=== PATIENT | female | born 1995 | race Caucasian/White ===

== ENCOUNTER 2016-10-17 06:53 | Inpatient (IN) | payer OTHER ==
[2016-10-17] MEDS ORDERED: NITRATEST PAPER MC ONE (08:00)
[2016-10-17] MEDS ORDERED: LACTATED RINGERS 1,000 ML IV SCH ×2 (08:00→09:00)
[2016-10-17] MEDS ORDERED: MINERAL OIL PO PRN ×2 (08:00→09:00)
[2016-10-17] MEDS ORDERED: PITOCin/NS 20 UNIT/1000ML DRIP 1,000 ML IV SCH ×2 (08:00→09:00)
[2016-10-17] MEDS ORDERED: PITOCin/NS 30 UNIT/500ML 500 ML IV SCH ×2 (08:00→09:00)
[2016-10-17] MEDS ORDERED: ePHEDrine SULFATE IV PRN ×2 (08:30→09:00)
[2016-10-17] MEDS ORDERED: BRETHINE IVP PRN ×2 (08:30→10:00)
[2016-10-17] MEDS ORDERED: BRETHINE SUB-Q PRN ×2 (08:30→10:00)
[2016-10-17] MEDS ORDERED: POLYCILLIN/NS 2 GM/100 ML 100 ML IV ONE (08:30)
[2016-10-17 08:35] LABS: Hematocrit 33.9 % (30.3-42.9); Hemoglobin 10.9 gm/dl (10.1-14.3); Mean Corpuscular HGB Conc 32 % (30-34); Mean Corpuscular Volume 80 fl (79-97); Platelet Count 251 K/mm3 (140-440); Red Blood Count 4.26 M/mm3 (3.65-5.03); Red Cell Distribution Width 15.5 % (13.2-15.2); White Blood Count 9.1 K/mm3 (4.5-11.0)
[2016-10-17 08:39] LABS: Mean Corpuscular Hemoglobin 26 pg (28-32)
[2016-10-17] MEDS ORDERED: STADOL IV PRN (09:00)
[2016-10-17] MEDS ORDERED: ZOFRAN IV PRN ×2 (09:00→12:53)
[2016-10-17] MEDS ORDERED: SUBLIMAZE IV PRN (09:00)
[2016-10-17] MEDS ORDERED: NARCAN 0.4 MG/1 ML IV PRN (09:00)
[2016-10-17] MEDS ORDERED: XYLOCAINE 2% INFILTRATI ONE (10:00)
--- NOTE | 2016-10-17 11:07 | History and Physical Report ---
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) Family/Genetic History: diabetes Social history: no significant social history - Obstetrical History Expected Date of Delivery: 10/18/16 Actual Gestation: 39 Week(s) 6 Day(s) : 2 Number of Living Children: 1 Medications and Allergies Allergies Allergy/AdvReac Type Severity Reaction Status Date / Time No Known Allergies Allergy Unverified 10/17/16 07:56 Active Meds: Active Medications Butorphanol Tartrate (Stadol) 1 mg IV Q2H PRN PRN Reason: Pain, Moderate (4-6) Ephedrine Sulfate (Ephedrine Sulfate) 10 mg IV Q2M PRN PRN Reason: Hypotension Stop: 10/17/16 13:00 Fentanyl (Sublimaze) 100 mcg IV Q2H PRN PRN Reason: Labor Pain Ampicillin Sodium (Polycillin/Ns 1 Gm/50 Ml) 50 mls @ 100 mls/hr IV Q4H YOKO PRN Reason: Protocol Lactated Ringer's (Lactated Ringers) 1,000 mls @ 125 mls/hr IV DIRECT YOKO Last Admin: 10/17/16 08:15 Dose: 125 mls/hr Oxytocin/Sodium Chloride (Pitocin/Ns 20 Unit/1000ml Drip) 1,000 mls @ 125 mls/ hr IV DIRECT YOKO Oxytocin/Sodium Chloride (Pitocin/Ns 30 Unit/500ml) 500 mls @ 2 mls/hr IV TITR YOKO PRN Reason: Protocol Last Titration: 10/17/16 10:00 Dose: 4 ml/hr Influenza Virus Vaccine Quadrival (Fluarix Quad [id number](36 Mos+)) 60 mcg IM .ONCE ONE Stop: 10/18/16 12:01 Mineral Oil (Mineral Oil) 30 ml PO QHS PRN PRN Reason: Constipation Naloxone HCl (Narcan 0.4 Mg/1 Ml) 0.1 mg IV Q2MIN PRN PRN Reason: Res Rate </= 8 or 02 SAT < 92% Ondansetron HCl (Zofran) 4 mg IV Q8H PRN PRN Reason: Nausea And Vomiting Review of Systems All systems: negative Gastrointestinal: abdominal pain Genitourinary: leakage of fluid - Vital Signs Vital signs: Vital Signs Pulse Pulse Ox 83 98 10/17/16 08:18 10/17/16 08:18 Temp Pulse Resp BP Pulse Ox 97.9 F 85 18 99 10/17/16 08:19 10/17/16 09:18 10/17/16 08:19 10/17/16 09:18 - Physical Exam Breasts: Positive: deferred Cardiovascular: Regular rate, Normal S1, Normal S2 Abdomen: Positive: normal appearance, soft, normal bowel sounds. Negative: distention, tenderness Vulva: both: normal Vagina: Positive: normal moisture. Negative: discharge Cervix: Negative: lesion, discharge Uterus: Positive: normal size, normal contour Adnexa: both: normal Anus/Rectum: Positive: normal perianal skin, heme negative. Negative: rectal mass, hemorrhoids Extremities: Deep Tendon Reflex Grade: Normal +2 - Obstetrical FHR: category 1 Uterine Contraction Monitor Mode: External Cervical Dilatation: 10 Cervical Effacement Percentage: 100 Uterine Contraction Pattern: Regular Uterine Tone Measurement Phase: Resting Uterine Contraction Intensity: Strong/Firm Results Result Diagrams: 10/17/16 07:37 Abnormal lab results 10/17/16 Range/Units 07:37 MCH 26 L (28-32) pg RDW 15.5 H (13.2-15.2) % All other labs normal. Assessment and Plan IUP at term, srom, + GBS Plan Ampicillin, pitocin, anticipate
--- NOTE | 2016-10-17 11:10 | Procedure Note ---
OB Delivery Note - Delivery Date of Delivery: 10/17/16 Surgeon: WILLIAM HERNADEZ Estimated blood loss: other (150ml) - Vaginal Delivery presentation: vertex Delivery position: OA Delivery induction: none Delivery augmentation: pitocin Delivery monitor: external FHT, external uterine Route of delivery: Delivery placenta: spontaneous Delivery cord: 3 umbilical vessels Episiotomy: none Delivery laceration: 2nd degree (perineal- repaired with 2-0 vicryl) Delivery repair: vicryl Anesthesia: intravenous - A at 1 minute: 8 Infant Gender: Male (wt 8-1, infant and mnother tolerated the procedure well.)
[2016-10-17] MEDS ORDERED: POLYCILLIN/NS 1 GM/50 ML 50 ML IV SCH (12:30)
[2016-10-17] MEDS ORDERED: BENADRYL PO PRN (12:53)
[2016-10-17] MEDS ORDERED: MILK OF MAGNESIA PO PRN (12:53)
[2016-10-17] MEDS ORDERED: LANSINOH TP PRN (12:53)
[2016-10-17] MEDS ORDERED: DERMOPLAST TP PRN (12:53)
[2016-10-17] MEDS ORDERED: PERCOCET 5/325 PO PRN (12:53)
[2016-10-17] MEDS ORDERED: SODIUM CHLORIDE FLUSH SYRINGE 10 ML IV SCH (12:53)
[2016-10-17] MEDS ORDERED: TYLENOL PO PRN (12:53)
[2016-10-17] MEDS ORDERED: PHENERGAN PO PRN (12:53)
[2016-10-17] MEDS ORDERED: PHENERGAN PR PRN (12:53)
[2016-10-17] MEDS ORDERED: DULCOLAX PR PRN (12:53)
[2016-10-17] MEDS ORDERED: TUCKS PAD TP PRN (12:53)
[2016-10-17] MEDS: MOTRIN PO SCH (17:22)
[2016-10-18] MEDS: MOTRIN PO SCH ×5 (00:41→23:40)
--- NOTE | 2016-10-18 01:09 | Progress Note ---
Assessment and Plan ppd 1 s/p . plan doing well. Subjective - Subjective Date of service: 10/18/16 Principal diagnosis: ppd 1 s/p Interval history: routine pp care, vs stable Patient reports: appetite normal, voiding normally, pain well controlled [place]: doing well Objective - Vital Signs Latest vital signs: Vital Signs Temp Pulse Pulse Resp BP BP Pulse Ox 10/17/16 15:39 98.3 F 80 18 100/62 10/17/16 12:25 98.2 F 68 18 100/72 10/17/16 11:55 85 108/70 10/17/16 11:40 89 104/63 10/17/16 11:25 85 104/65 10/17/16 11:11 80 109/69 10/17/16 11:04 98.4 F 18 109/69 10/17/16 09:18 85 99 10/17/16 09:13 77 97 10/17/16 09:08 79 98 10/17/16 09:03 79 97 10/17/16 08:58 77 97 10/17/16 08:53 83 97 10/17/16 08:48 89 98 10/17/16 08:43 82 99 10/17/16 08:38 84 98 10/17/16 08:33 89 98 10/17/16 08:19 97.9 F 18 10/17/16 08:18 83 98 Intake and Output 10/17/16 10/17/16 10/18/16 14:59 22:59 06:59 Intake Total 120 720 Output Total 350 300 Balance -230 420 Intake: Oral 360 Intake, Free Water 120 360 Output: Urine 350 300 Void 350 300 Other: Total, Intake Amount 240 Total, Output Amount 350 300 Voiding Method Toilet Weight 174 kg Estimated Blood Loss 150 Patient Weight 10/18/16 06:59 Weight 174 kg - Exam Breasts: Present: deferred Cardiovascular: Present: Regular rate, Normal S1, Normal S2 Lungs: Present: Clear to auscultation Abdomen: Present: normal appearance, soft Vulva: both: normal Uterus: Present: normal, firm Extremities: Present: normal Incision: Present: normal, dry, intact - Labs Labs: Abnormal lab results 10/17/16 10/17/16 Range/Units 07:37 07:37 MCH 26 L (28-32) pg RDW 15.5 H (13.2-15.2) % Crossmatch See Detail
[2016-10-18 01:30] LABS: Hematocrit 31.6 % (30.3-42.9); Hemoglobin 10.2 gm/dl (10.1-14.3)
[2016-10-18] MEDS ORDERED: BOOSTRIX IM ONE (06:00)
--- NOTE | 2016-10-18 08:11 | Discharge Summary ---
Providers - Providers Date of Admission: 10/17/16 07:16 Date of discharge: 10/19/16 Attending physician: WILLIAM HERNADEZ Primary care physician: WILLIAM HERNADEZ Hospitalization Reason for admission: active labor Delivery: Procedure details: Episiotomy: none Laceration: 2nd degree (repaired) Other procedures: none complications: none Discharge diagnosis: IUP at term delivered [place] baby: male Hospital course: pt doing well. hospitalized 48 hours secondary to + GBS Condition at discharge: Good Disposition: DISCHARGED TO HOME OR SELFCARE - Discharge Diagnoses (1) (normal spontaneous vaginal delivery) Status: Acute Plan - Discharge Medications Prescriptions: Ferrous Sulfate [Feosol 325 MG tab] 325 mg PO BID #60 tablet Ibuprofen [Motrin 800 MG tab] 800 mg PO Q8HR PRN #30 tablet PRN Reason: Pain oxyCODONE /ACETAMINOPHEN [Percocet 5/325] 1 tab PO Q6HR PRN #30 tablet PRN Reason: Pain - Provider Discharge Summary Activity: routine, no sex for 6 weeks, no heavy lifting 4 weeks, no strenuous exercise Diet: routine Instructions: routine Additional instructions: [] Smoking cessation referral if applicable(refer to patient education folder for contact #) [] Refer to [facility] Booklet Call your doctor immediately for: * Fever > 100.5 * Heavy vaginal bleeding ( >1 pad per hour) * Severe persistent headache * Shortness of breath * Reddened, hot, painful area to leg or breast * Drainage or odor from incision. * Keep incision clean and dry at all times and follow doctor's instructions regarding bathing/showering - Follow up plan Follow up: WILLIAM HERNADEZ MD [Primary Care Provider] - 6 Weeks
[2016-10-18] MEDS: FEOSOL PO SCH ×2 (11:32→23:40)
[2016-10-18] MEDS ORDERED: FLUARIX QUAD 2016-2017(36 MOS+) IM ONE (12:00)
[2016-10-19] MEDS: MOTRIN PO SCH (06:08)
[2016-10-19 09:18] VITALS: BP 101/61
[2016-10-19] MEDS: FEOSOL PO SCH (09:30)
== END 2016-10-19 11:15 | disposition home or self-care (01) | DRG 775 ==
LOC: TRG 06:53 → LD 07:16 → OB 12:20
PROVIDERS: ADMIT Specialist; ATTEND Specialist
PROC: 10E0XZZ Delivery of Products of Conception, External Approach (ICD-10-PCS; principal; 2016-10-17)
PROC: 0KQM0ZZ Repair Perineum Muscle, Open Approach (ICD-10-PCS; principal; 2016-10-17)
DX: O99.824 Streptococcus B carrier state complicating childbirth (principal); Z37.0 Single live birth; Z3A.39 39 weeks gestation of pregnancy; Z83.3 Family history of diabetes mellitus; O70.1 Second degree perineal laceration during delivery
CPT/HCPCS: 36415; 85014; 85018; 85027; 86850; 86870; 86900; 86901; 86902; 86922; 90471; 90715; 99211; G0463; J0290; J2590; J3010; J7120

== ENCOUNTER 2018-06-19 19:28 | Outpatient (CLI) | payer SELFPAY ==
[2018-06-19 23:57] VITALS: BP 109/69
[2018-06-19 23:59] LABS: Bacteria,Urine 1+ /HPF (Negative); Bilirubin,Urine NEG (Negative); Blood,Urine NEG (Negative); Color,Urine Yellow (Yellow); Mucus,Urine FEW /HPF; Protein,Urine <15 mg/dL mg/dL (Negative); Urobilinogen,Urine < 2.0 mg/dL (<2.0)
[2018-06-20 02:01] LABS: Hematocrit 31.4 % (30.3-42.9); Hemoglobin 10.4 gm/dl (10.1-14.3); Mean Corpuscular HGB Conc 33 % (30-34); Mean Corpuscular Hemoglobin 26 pg (28-32); Mean Corpuscular Volume 80 fl (79-97); Platelet Count 217 K/mm3 (140-440); Red Blood Count 3.95 M/mm3 (3.65-5.03); Red Cell Distribution Width 15.1 % (13.2-15.2)
[2018-06-20 02:33] LABS: Alanine Aminotransferase 13 units/L (7-56); Uric Acid 2.7 mg/dL (3.5-7.6)
[2018-06-20] MEDS ORDERED: TYLENOL PO ONE (02:39)
== END 2018-06-20 03:10 | disposition home or self-care (01) ==
LOC: TRG 19:28
PROVIDERS: ATTEND Obstetrics & Gynecology
DX: O47.1 False labor at or after 37 completed weeks of gestation (principal); Z3A.38 38 weeks gestation of pregnancy
CPT/HCPCS: 36415; 59025; 81001; 82565; 83615; 84450; 84460; 84550; 85027

== ENCOUNTER 2018-06-23 05:03 | Inpatient (IN) | payer SELFPAY ==
[2018-06-23] MEDS ORDERED: XYLOCAINE 2% INFILTRATI ONE (05:32)
[2018-06-23] MEDS ORDERED: MINERAL OIL PO PRN (05:32)
[2018-06-23] MEDS ORDERED: SUBLIMAZE IV PRN (05:32)
[2018-06-23] MEDS ORDERED: BRETHINE IVP PRN (05:32)
[2018-06-23] MEDS ORDERED: POLYCILLIN/NS 2 GM/100 ML 2 GM/100 ML BAG IV ONE (05:32)
[2018-06-23] MEDS ORDERED: BRETHINE SUB-Q PRN (05:32)
--- NOTE | 2018-06-23 05:49 | History and Physical Report ---
History of Present Illness Date of examination: 06/23/18 Date of admission: 06/23/18 05:30 Chief complaint: Contractions since 03:00 am today. History of present illness: 23 year old female presents to L&D complaining of regular contractions since 03:00 today. Patient denies leaking of fluid. She reports active movement. Patient received care at [facility] and she brings her records with her today. LMP 09/25/17. EDC 07/02/18. EGA 38 weeks, 5 days gestation. significant for GBS positive, anemia (on oral iron therapy), and overweight. labs are as follows: A+, antibody screen negative, rubella immune, RPR nonreactive, hepatitis B surface antigen negative, HIV negative, chlamydia negative, gonorrhea negative, quad screen negative, diabetes screen 112, GBS positive. 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 denies: smoking, alcohol abuse, prescription drug abuse, IV drug use - Obstetrical History Expected Date of Delivery: 07/02/18 Actual Gestation: 38 Week(s) 5 Day(s) : 3 Para: 2 Hx # Term Pregnancies: 3 Number of Pregnancies: 0 Spontaneous Abortions: 0 Induced : 0 Number of Living Children: 2 Medications and Allergies Allergies Allergy/AdvReac Type Severity Reaction Status Date / Time No Known Allergies Allergy Verified 06/19/18 22:54 Home Medications Medication Instructions Recorded Confirmed Last Taken Type Ferrous Sulfate [Feosol 325 MG tab] 325 mg PO BID #60 tablet 10/18/16 Unknown Rx Ibuprofen [Motrin 800 MG tab] 800 mg PO Q8HR PRN #30 tablet 10/18/16 Unknown Rx oxyCODONE /ACETAMINOPHEN [Percocet 1 tab PO Q6HR PRN #30 tablet 10/18/16 Unknown Rx 5/325] Active Meds: Active Medications Ephedrine Sulfate (Ephedrine Sulfate) 10 mg IV Q2M PRN PRN Reason: Hypotension Fentanyl (Sublimaze) 100 mcg IV Q2H PRN PRN Reason: Labor Pain Ampicillin Sodium (Polycillin/Ns 2 Gm/100 Ml) 2 gm in 100 mls @ 100 mls/hr IV ONCE ONE; Protocol Stop: 06/23/18 06:31 Lactated Ringer's (Lactated Ringers) 1,000 mls @ 125 mls/hr IV DIRECT YOKO Oxytocin/Sodium Chloride (Pitocin/Ns 20 Unit/1000ml Drip) 20 units in 1,000 mls @ 125 mls/hr IV DIRECT YOKO Ampicillin Sodium (Ampicillin/Ns 1 Gm/50 Ml) 1 gm in 50 mls @ 100 mls/hr IV Q4HR YOKO; Protocol Mineral Oil (Mineral Oil) 30 ml PO QHS PRN PRN Reason: Constipation Terbutaline Sulfate (Brethine) 0.25 mg SUB-Q ONCE PRN PRN Reason: Hyperstimulation/Hypertonicity Terbutaline Sulfate (Brethine) 0.25 mg IVP ONCE PRN PRN Reason: Hyperstimulation/Hypertonicity Review of Systems All systems: negative (contractions) - Vital Signs Vital signs: Vital Signs Temp Pulse Resp BP 97.5 F L 59 L 18 117/75 06/23/18 05:09 06/23/18 05:09 06/23/18 05:09 06/23/18 05:09 Temp Pulse Resp BP Pulse Ox 97.5 F L 59 L 18 117/75 06/23/18 05:09 06/23/18 05:09 06/23/18 05:09 06/23/18 05:09 - Physical Exam Cardiovascular: Regular rate, Normal S1, Normal S2 Lungs: Positive: Clear to auscultation Abdomen: Positive: normal appearance, soft. Negative: distention, tenderness, guarding, rigidity Genitourinary (Female): Positive: normal external genitalia, normal perenium, other (no lesions seen on careful exam with bright light upon admission). Negative: perineal/vulvar lesions Vagina: Positive: normal moisture Uterus: Positive: enlarged. Negative: tender Anus/Rectum: Positive: normal perianal skin Extremities: Positive: normal. Negative: tenderness, edema - Obstetrical FHR: category 2 FHR comments: FHR baseline 135 with moderate variability and accelerations and occasional brief variable deceleration with rapid return to baseline. Uterine Contraction Monitor Mode: External Cervical Dilatation: 6 Cervical Effacement Percentage: 90 station: -1 Uterine Contraction Frequency (min): every 2-3 minutes Uterine Contraction Pattern: Regular Results All other labs normal. Assessment and Plan A: at 38 weeks, 5 days gestation. Active labor. GBS positive. P: Admit. GBS prophylaxis. Anticipate vaginal delivery.
[2018-06-23] MEDS ORDERED: PITOCin/NS 20 UNIT/1000ML DRIP 20 UNITS/1,000 ML BAG IV SCH (06:00)
[2018-06-23] MEDS ORDERED: LACTATED RINGERS 1,000 ML IV SCH (06:00)
[2018-06-23 06:27] LABS: Hemoglobin 10.6 gm/dl (10.1-14.3); Mean Corpuscular HGB Conc 32 % (30-34); Mean Corpuscular Volume 79 fl (79-97); Platelet Count 203 K/mm3 (140-440); Red Blood Count 4.15 M/mm3 (3.65-5.03); Red Cell Distribution Width 15.6 % (13.2-15.2)
[2018-06-23 06:30] LABS: Mean Corpuscular Hemoglobin 26 pg (28-32)
--- NOTE | 2018-06-23 07:03 | Event Note ---
Date: 06/23/18 E /-1
[2018-06-23] MEDS ORDERED: XYLOCAINE MPF 2% ONE (08:58)
[2018-06-23] MEDS ORDERED: XYLOCAINE 1% MPF 5 mL INFILTRATI ONE (08:58)
[2018-06-23] MEDS ORDERED: ZOFRAN IV PRN (09:12)
[2018-06-23] MEDS ORDERED: LANSINOH TP PRN (09:12)
[2018-06-23] MEDS ORDERED: PHENERGAN PR PRN (09:12)
[2018-06-23] MEDS ORDERED: NORCO 5/325 PO PRN (09:12)
[2018-06-23] MEDS ORDERED: TYLENOL PO PRN (09:12)
[2018-06-23] MEDS ORDERED: BENADRYL PO PRN (09:12)
[2018-06-23] MEDS ORDERED: PHENERGAN PO PRN (09:12)
[2018-06-23] MEDS ORDERED: TUCKS PAD TP PRN (09:12)
--- NOTE | 2018-06-23 09:22 | Procedure Note ---
OB Delivery Note - Delivery Date of Delivery: 06/23/18 Surgeon: PEDRO JARVIS (WEN) Estimated blood loss: 200cc - Vaginal Delivery presentation: vertex Delivery position: OA Intrapartum events: none Delivery induction: none Delivery augmentation: rupture of membranes (AROM @ 8:33, clear) Delivery monitor: external FHT, external uterine Route of delivery: (08:45) Delivery placenta: spontaneous (08:50) Delivery cord: 3 umbilical vessels Episiotomy: none Delivery laceration: 1st degree (perineal) Delivery repair: vicryl (3-0 CT-1) Anesthesia: local, intravenous (IV sedation) Delivery comments: of a vigorous term 9 lbs 6 oz male infant on 06/23/18 @ 08:45. Baby placed [id number] on maternal abdomen. After 3 mins, umbilical cord double-clamped by WEN Jarvis and cut by patient's mom. Spontaneous delivery of placenta, Joel-side presenting, @ 08:50. Small lochia present. Fundal massage and IV Pitocin bolus initiated. Fundus F/ML/U-1. 1st degree perineal laceration noted and repaired using a 3-0 vicryl needle under local anesthesia. Patient tolerated the procedure. Placenta intact, was discarded. Mom and baby in stable condition. - A at 1 minute: 8 at 5 minutes: 9 Gender: Male (9 lbs 6 oz (4248 gm); 21 in)
[2018-06-23] MEDS ORDERED: AMPICILLIN/NS 1 GM/50 ML 1 GM/50 ML BAG IV SCH (09:35)
[2018-06-23] MEDS ORDERED: DULCOLAX PR PRN (10:00)
[2018-06-23] MEDS ORDERED: SODIUM CHLORIDE FLUSH SYRINGE 10 ML IV NR (10:00)
[2018-06-23] MEDS: MOTRIN PO SCH ×3 (10:01→23:13)
[2018-06-23] MEDS ORDERED: AFLURIA QUAD 2018-2019 SYRINGE IM ONE (12:00)
[2018-06-23] MEDS: FEOSOL PO SCH (15:29)
[2018-06-23] MEDS: PRENATAL VITAMIN PO SCH (15:30)
[2018-06-23 20:57] LABS: Hematocrit 27.4 % (30.3-42.9); Hemoglobin 8.8 gm/dl (10.1-14.3)
[2018-06-23] MEDS ORDERED: MILK OF MAGNESIA PO PRN (22:00)
[2018-06-24] MEDS: MOTRIN PO SCH ×4 (05:19→23:14)
[2018-06-24] MEDS ORDERED: BOOSTRIX IM ONE (06:00)
[2018-06-24] MEDS: PRENATAL VITAMIN PO SCH (10:17)
[2018-06-24] MEDS: FEOSOL PO SCH (10:17)
--- NOTE | 2018-06-24 10:27 | Progress Note ---
Assessment and Plan A: PPD#1 s/p Asymptomatic anemia Stable Desires discharge home today P: Routine PP care Continue Ferrous sulfate 325mg PO BID Discharge home today pending Peds Subjective - Subjective Date of service: 06/24/18 Principal diagnosis: PPD#1 s/p Interval history: See H&P and delivery note Patient reports: appetite normal, voiding normally, pain well controlled, flatus , ambulating normally, no bowel movement [place]: doing well, other (breast/bottle) Objective - Vital Signs Latest vital signs: Vital Signs Temp Pulse Resp BP BP Pulse Ox 06/24/18 07:57 97.6 F 61 16 100/61 98 06/24/18 00:00 98.7 F 66 18 118/79 06/23/18 20:00 98.6 F 77 18 104/78 06/23/18 18:24 98 F 65 20 109/61 98 06/23/18 18:10 98.0 F 57 L 20 111/70 06/23/18 14:56 20 06/23/18 10:29 68 110/64 Intake and Output 06/23/18 06/24/18 06/24/18 23:59 07:59 15:59 Intake Total 240 800 200 Output Total 700 Balance -460 800 200 Intake: Oral 240 200 200 Intake, Free Water 600 Output: Urine 700 Void 700 Other: Total, Intake Amount 240 200 200 Total, Output Amount 700 # Voids Void 1 - Exam Breasts: Present: Cardiovascular: Present: Regular rate, Normal S1, Normal S2, No murmurs Lungs: Present: Clear to auscultation, Normal air movement Abdomen: Present: normal appearance, soft. Absent: distention Vulva: both: laceration/episiotomy (1st degree perineal lacertion, intact, well approximated) Uterus: Present: fundal height at umbilicus Extremities: Present: normal Deep Tendon Reflex Grade: Normal +2 - Labs Labs: Abnormal lab results 06/23/18 Range/Units 20:40 Hgb 8.8 L (10.1-14.3) gm/dl Hct 27.4 L (30.3-42.9) %
--- NOTE | 2018-06-24 10:28 | Discharge Summary ---
Providers - Providers Date of Admission: 06/23/18 05:30 Date of discharge: 06/24/18 Attending physician: PINA SARGENT MD Primary care physician: PINA SARGENT MD Hospitalization Reason for admission: active labor, IUP at term Delivery: Procedure details: See delivery note Episiotomy: none Laceration: 1st degree (well approximated) Other procedures: none complications: none Discharge diagnosis: IUP at term delivered [place] baby: male Condition at discharge: Good Disposition: DC-01 TO HOME OR SELFCARE Plan - Provider Discharge Summary Activity: routine, no sex for 6 weeks, no heavy lifting 4 weeks, no strenuous exercise Diet: routine Instructions: routine Additional instructions: [] Smoking cessation referral if applicable(refer to patient education folder for contact #) [] Refer to [facility] Booklet Call your doctor immediately for: * Fever > 100.5 * Heavy vaginal bleeding ( >1 pad per hour) * Severe persistent headache * Shortness of breath * Reddened, hot, painful area to leg or breast * Drainage or odor from incision. * Keep incision clean and dry at all times and follow doctor's instructions regarding bathing/showering - Follow up plan Follow up: PINA SARGENT MD [Primary Care Provider] - 6 Weeks
[2018-06-25] MEDS: MOTRIN PO SCH ×2 (05:54→12:34)
[2018-06-25 08:34] VITALS: BP 111/72
[2018-06-25] MEDS: PRENATAL VITAMIN PO SCH (12:34)
[2018-06-25] MEDS: FEOSOL PO SCH (12:34)
== END 2018-06-25 13:10 | disposition home or self-care (01) | DRG 806 ==
LOC: TRG 05:03 → LD 05:30 → OB 12:32
PROVIDERS: ADMIT Obstetrics & Gynecology; ATTEND Obstetrics & Gynecology
PROC: 10E0XZZ Delivery of Products of Conception, External Approach (ICD-10-PCS; principal; 2018-06-23)
PROC: 10907ZC Drainage of Amniotic Fluid, Therapeutic from Products of Conception, Via Natural or Artificial Opening (ICD-10-PCS; 2018-06-23)
PROC: 0HQ9XZZ Repair Perineum Skin, External Approach (ICD-10-PCS; 2018-06-23)
PROC: 3E0234Z Introduction of Serum, Toxoid and Vaccine into Muscle, Percutaneous Approach (ICD-10-PCS; 2018-06-24)
DX: O99.824 Streptococcus B carrier state complicating childbirth (principal); O98.42 Viral hepatitis complicating childbirth; Z37.0 Single live birth; O99.02 Anemia complicating childbirth; B19.20 Unspecified viral hepatitis C without hepatic coma; O70.0 First degree perineal laceration during delivery; Z3A.38 38 weeks gestation of pregnancy; Z79.899 Other long term (current) drug therapy; Z23 Encounter for immunization; D64.9 Anemia, unspecified
CPT/HCPCS: 36415; 85014; 85018; 85027; 86592; 86850; 86900; 86901; 90471; 90686; 90715; 99211; G0463; J0290; J2590; J3010; J7120